=== PATIENT | female | born 1945 | race African-American/Black ===

== ENCOUNTER 2017-04-23 14:59 | Observation (INO) | payer MEDICARE ==
[~2017-04-23] VITALS: Ht 165.1 cm; Wt 86.4 kg
[~2017-04-23 14:59] MED LIST: ALENDRONATE70 MG PO; AMOX/K CLAV875 M1 PO; AMOXICILLIN/CL875 MG PO; AMOXICILLIN/PO500 MG PO; AMOXICILLIN500 MG PO; AUGMENTIN250 MG PO; AUGMENTIN875TAB PO; BACLOFEN10 MG PO; BAYER ASPIRIN325 MG PO; BENZONATATE200 MG PO; CALCIUM 600 +600 MG PO; CHERATUSSIN OR; FLAGYL500 MG PO; HYDROCHLOROT12.5 MG PO; HYDROCHLOROT25 MG PO; K-LOR20 MEQ OR; K-TABS10 MEQ OR; K-TABS10 MEQ PO; LISINOP/HCTZ1 TA1 OR; LISINOPRIL10 MG PO; METOPROL TAR100 MG OR; METOPROLOL SUC100 MG PO; NAPROSYN375 MG PO; NAPROSYN500 MG PO; NAPROXEN500 MG PO; OMEPRAZOLE40 MG PO; PRILOSEC40 MG PO; SIMVASTATIN40 MG PO; SOLU-MEDROL125 MG IM; TESSALON PER100 MG PO; TIZANIDINE2 MG PO; TRAMADOL HCL50 MG PO; VOSOL2 % AU; [UNRECOGNIZED DRUG - OTHER] OR
--- NOTE | 2017-04-23 15:00 | NUR ---
PT ACTUALLY TO ER AROUND 1450 WITH EMS, NO BEDS AVAILABLE, WAITED IN HALLWAY. EXAMINED PT AND DID A STROKE SCALE AND DID NOT THINK PT HAD ANY DEFICIETS OR MET THE DIAGNOSIS OF STROKE COMPLAINT.
--- NOTE | 2017-04-23 15:25 | NUR ---
FAMILY AT BEDSIDE, PT STATES SHE WAS ON PHONE TALKING TO SISTER AND FELT LIKE HER HEAD WAS SPINNING AND SHE BECAME LIGHTHEADED AROUND 130. VITAL SIGNS STABLE. PT ALERT/ORIENTED X3.
--- NOTE | 2017-04-23 15:54 | NUR ---
PT REMAINS A 0 ON THE [facility] SCALE , FLUIDS INFUSING. LABS DRAWN.
[2017-04-23 16:02] LABS: HEMATOCRIT 34.5 % (37.0-47.0); HEMOGLOBIN 11.1 g/dl (12.0-16.0); IMMATURE GRANULOCYTES 0.3 % (0.0-1.0); MEAN CELL VOLUME 96.9 fL CALC (80.0-100.0); MEAN CORPUSCULAR HGB 31.2 pG CALC (26.0-32.0); MEAN CORPUSCULAR HGB CONC 32.2 g/L CALC (32.0-36.0); NEUT# 4.02 thou/uL (2.00-7.15); RED BLOOD COUNT 3.56 mill/uL (4.20-5.60); RED CELL DISTRI WIDTH 13.7 % (11.5-15.5)
--- NOTE | 2017-04-23 16:05 | NUR ---
DAUGHTERS AT BEDSIDE. PT TALKATIVE. FLUIDS INFUSING-TOLERATING WELL
[2017-04-23 16:22] LABS: ALKALINE PHOSPHATASE 73 u/l (38-126); ANION GAP 15 (6-22 (CALC)); BILIRUBIN, TOTAL 0.8 mg/dL (0.0-1.4); BUN 20 mg/dL (8-23); BUN/CREATININE RATIO 24 (12-20 (CALC)); CALCIUM 9.4 mg/dL (8.4-10.2); CARBON DIOXIDE 24 mmol/l (22-30); CHLORIDE 108 mmol/l (95-108); CREATININE 0.9 mg/dL (0.5-1.0); GFR > 60 ML/MIN (>=60 (CALC)); GFR FOR AFR.AMER. > 60 ML/MIN (>=60 (CALC)); GLUCOSE 90 mg/dL (82-115); POTASSIUM 4.1 mmol/l (3.5-5.1); SGOT/AST 19 u/l (9-36); SGPT/ALT 28 u/l (11-66); SODIUM 143 mmol/l (137-146); TOTAL PROTEIN 7.2 g/dL (6.3-8.2)
--- NOTE | 2017-04-23 16:30 | NUR ---
PT UP TO BEDSIDE COMMODE
[2017-04-23 16:34] LABS: MYOGLOBIN 75 ng/mL (0 - 62)
--- NOTE | 2017-04-23 17:48 | NUR ---
PT RESTING QUIETLY, FAMILY AT BEDSIDE. NO PAIN AT THIS TIME
--- NOTE | 2017-04-23 18:12 | NUR ---
DR. RIOS SPEAKING WITH PT AND FAMILY AGAIN.
--- NOTE | 2017-04-23 18:17 | NUR ---
SBAR PRINTED TO FLOOR
--- NOTE | 2017-04-23 18:34 | NUR ---
FOOD TRAY GIVEN PER ORDER
--- NOTE | 2017-04-23 18:37 | NUR ---
TRIED TO CALL REPORT BUT NO ANSWER
--- NOTE | 2017-04-23 19:00 | NUR ---
RECEIVED REPORT FROM ZION EDWARDS.
--- NOTE | 2017-04-23 19:15 | NUR ---
PT. TAKEN TO ICU VIA STRETCHER, FAMILY AT SIDE. NO C/P.
[2017-04-23 19:18] VITALS: BP 175/85
--- NOTE | 2017-04-23 19:18 | NUR ---
female pt received to ICU 2 via stretcher accompanied by Yasmine Aguirre RN in stable condition; ambulatory to scale, bathroom then bed with steady gait; admission assessment completed at this time; c/c -pt starting coughing then lost her speech and became weak when trying to walk; pt alert nd oriented; admits to left shoulder pain rating 7/10; admits to taking a muscle relaxer but unsure of name; no n/v noted; resp even and unlabored; lungs clear throughout; skin color wnl; ra; hr reg; sr on monitor; strong pulses; trace edema noted to ankles; abd soft with bs present; no bm noted per radio script writer; pt voiding clear yellow urine without complication; ua sent to lab; #20 ems site in lh flushed and patent; no redness or edema noted at site; no neuro deficits noted; pt maew well; denies weakness at this time; no slurred speech noted; plan of care/ pm meds explained; pt hypertensive; admits to taking bp meds this am; pt encouraged to use call light; will continue to monitor closely
[2017-04-23 20:00] VITALS: BP 180/105
--- NOTE | 2017-04-23 20:00 | NUR ---
Dr Swan notified per keno writer of pt complaints of left shoulder pain and request for sleeping med; also informed pt bp 175/85; orders received and on chart
[2017-04-23 20:17] LABS: URINE BILIRUBIN - DIPSTICK NEGATIVE (NEGATIVE); URINE BLOOD DIPSTICK NEGATIVE (NEGATIVE); URINE CLARITY CLEAR; URINE COLOR YELLOW; URINE GLUCOSE - DIPSTICK NEGATIVE (NEGATIVE); URINE KETONE NEGATIVE (NEGATIVE); URINE LEUK ESTERASE NEGATIVE (NEGATIVE); URINE NITRITE - DIPSTICK NEGATIVE (Negative); URINE PROTEIN - DIPSTICK NEGATIVE (NEG-TRACE); URINE UROBILINOGEN - DIPSTICK 0.2 E.U./dL (0.2)
[2017-04-23 20:30] VITALS: BP 170/91
--- NOTE | 2017-04-23 20:30 | NUR ---
daughter present at bedside; home meds now noted in room; pt informed meds are to be sent home with family; will continue to monitor
[2017-04-23 21:59] VITALS: BP 156/91
--- NOTE | 2017-04-23 21:59 | NUR ---
resting with eyes closed; easily aroused; offers no complaints; admits to pain relief; bp reassessed at 156/91; sr on monitor; iv intact; deny needs; call light within reach; will continue to monitor
[2017-04-24] VITALS: BP 165/95
--- NOTE | 2017-04-24 | NUR ---
pt asleep; easily aroused; no distress noted; alert and oriented; denies pain; maew; no neuro deficit noted; assisted to bsc; voiding clear yellow urine pain/buring; iv intact; sr on monitor; call light within reach; will continue to monitor
--- NOTE | 2017-04-24 02:08 | NUR ---
resting with eyes closed; no distress noted; sr on monitor; call light within reach; will continue to monitor
[2017-04-24 04:08] VITALS: BP 183/101
--- NOTE | 2017-04-24 04:08 | NUR ---
pt awake; up to bsc per self; no distress noted; pt strongly encouraged to use call light; alert and oriented; no neuro changes noted; sr on monitor; bp 183/101; medicated with apresoline iv as per orders; call light within reach; will continue to monitor
[2017-04-24 05:03] LABS: CHOLESTEROL HDL RATIO 4.2 (<4.4 (CALC))
[2017-04-24 05:40] VITALS: BP 140/84
--- NOTE | 2017-04-24 05:40 | NUR ---
pt awake in bed; no distress noted; pt offers no complaints; iv intact; sr on monitor; no neuro deficits noted; bp reassessed at 140/84; bed in lowest position; call light within reach
--- NOTE | 2017-04-24 05:45 | NUR ---
daughter Tanya called this casualty underwriter; passcode verified; updated on pt condition; portable phone provided for pt to speak with daughter
[2017-04-24 07:15] VITALS: BP 195/103
--- NOTE | 2017-04-24 07:15 | NUR ---
PT LAYING IN BED WATCHING TV, A & O X3, PERRL, PT DENIES ANY PAIN, PT SHOWS NO NEURO DEFICITS, HR 65, RESP. 18, BP 195/103, O2 97% ON RA, LUNG SOUNDS CLEAR IN ALL ELIAS, 20G LH IV SALINE LOCKED, BILAT ANKLE TRACE EDEMA, AM ASSESSMENT COMPLETE, SEE INTERVENTIONS, SAFETY MEASURES REINFORCED, CALL [facility] WITHIN REACH
--- NOTE | 2017-04-24 08:35 | NUR ---
VISITOR AT BEDSIDE
[2017-04-24] MEDS ORDERED: TIZANIDINE HCL4 MG PO (08:39)
--- NOTE | 2017-04-24 08:40 | NUR ---
DR ACEVES AT BEDSIDE DISCUSSING PLAN OF CARE
[2017-04-24] MEDS ORDERED: ZOLOFT50 MG PO ×2 (08:41→15:25)
[2017-04-24] MEDS ORDERED: LISINOPRIL10 MG PO (08:42)
--- NOTE | 2017-04-24 10:15 | NUR ---
PT TO US VIA WC
--- NOTE | 2017-04-24 11:00 | NUR ---
PT RETURNED TO UNIT FROM US VIA WC
--- NOTE | 2017-04-24 11:45 | NUR ---
SETUP ASSISTANCE PROVIDED WITH LUNCH TRAY
[2017-04-24 12:00] VITALS: BP 152/92
--- NOTE | 2017-04-24 12:30 | NUR ---
PT SITTING IN RECLINER WATCHING TV, PT VERBALIZES NO COMPLAINT, PT TOLERATED LUNCH WELL, VISITORS AT BEDSIDE, PT REMINDED TO CALL FOR ASSISTANCE, CALL [facility] WITHIN REACH
[2017-04-24] MEDS ORDERED: BAYER ASPIRIN325 MG PO (15:25)
[2017-04-24] MEDS ORDERED: HYDROCHLOROT25 MG PO (15:25)
[2017-04-24] MEDS ORDERED: LISINOPRIL20 MG PO (15:25)
[2017-04-24] MEDS ORDERED: SIMVASTATIN40 MG PO (15:25)
[2017-04-24] MEDS ORDERED: METOPROLOL SUC100 MG PO (15:25)
--- NOTE | 2017-04-24 16:27 | NUR ---
Discharge instructions given. Patient verbalizes understanding of same. Discharged in stable condition via Ambulatory to Home with family. All belongings sent with pt.
== END 2017-04-24 16:25 | disposition home or self-care (01) ==
LOC: ED 14:59 → ED-I 18:00 → ED 18:21 → ICU 18:22
PROVIDERS: Emergency Medicine; Internal Medicine; ADMIT Internal Medicine; ATTEND Internal Medicine
DX: G45.9 Transient cerebral ischemic attack, unspecified (principal); I10 Essential (primary) hypertension; I95.9 Hypotension, unspecified; E78.5 Hyperlipidemia, unspecified; I69.992 Facial weakness following unspecified cerebrovascular disease; Z91.14 Patient's other noncompliance with medication regimen

== ENCOUNTER 2017-04-25 14:16 | Emergency (ER) | payer MEDICARE ==
[~2017-04-25] VITALS: Ht 165.1 cm; Wt 90.0 kg
[~2017-04-25 14:16] MED LIST changes: +LISINOPRIL20 MG PO; +TIZANIDINE HCL4 MG PO; +ZOLOFT50 MG PO
[2017-04-25 15:43] LABS: HEMATOCRIT 35.3 % (37.0-47.0); HEMOGLOBIN 11.5 g/dl (12.0-16.0); IMMATURE GRANULOCYTES 0.3 % (0.0-1.0); MEAN CELL VOLUME 95.4 fL CALC (80.0-100.0); MEAN CORPUSCULAR HGB 31.1 pG CALC (26.0-32.0); MEAN CORPUSCULAR HGB CONC 32.6 g/L CALC (32.0-36.0); NEUT# 4.38 thou/uL (2.00-7.15); RED BLOOD COUNT 3.7 mill/uL (4.20-5.60); RED CELL DISTRI WIDTH 13.6 % (11.5-15.5)
[2017-04-25 15:45] LABS: ALBUMIN 3.8 g/dL (3.2-5.0); ALKALINE PHOSPHATASE 78 u/l (38-126); ANION GAP 14 (6-22 (CALC)); BILIRUBIN, TOTAL 0.6 mg/dL (0.0-1.4); BUN 31 mg/dL (8-23); BUN/CREATININE RATIO 22 (12-20 (CALC)); CALCIUM 9.3 mg/dL (8.4-10.2); CARBON DIOXIDE 25 mmol/l (22-30); CHLORIDE 104 mmol/l (95-108); CREATININE 1.4 mg/dL (0.5-1.0); GFR 37 ML/MIN (>=60 (CALC)); GFR FOR AFR.AMER. 45 ML/MIN (>=60 (CALC)); GLUCOSE 96 mg/dL (82-115); POTASSIUM 3.6 mmol/l (3.5-5.1); SGOT/AST 49 u/l (9-36); SGPT/ALT 24 u/l (11-66); SODIUM 140 mmol/l (137-146); TOTAL PROTEIN 7.3 g/dL (6.3-8.2)
[2017-04-25 15:56] LABS: MYOGLOBIN 99 ng/mL (0 - 62)
[2017-04-25 16:33] LABS: URINE BILIRUBIN - DIPSTICK NEGATIVE (NEGATIVE); URINE BLOOD DIPSTICK NEGATIVE (NEGATIVE); URINE CLARITY SL CLOUDY; URINE COLOR YELLOW; URINE GLUCOSE - DIPSTICK NEGATIVE (NEGATIVE); URINE KETONE TRACE mg/dL (NEGATIVE); URINE LEUK ESTERASE NEGATIVE (NEGATIVE); URINE NITRITE - DIPSTICK NEGATIVE (Negative); URINE PH 5.5 (4.5-8.0); URINE PROTEIN - DIPSTICK NEGATIVE (NEG-TRACE); URINE UROBILINOGEN - DIPSTICK 0.2 E.U./dL (0.2)
[2017-04-25 16:55] VITALS: BP 128/74
== END 2017-04-25 16:55 | disposition home or self-care (01) ==
LOC: ED 14:16
PROVIDERS: Emergency Medicine
DX: I95.9 Hypotension, unspecified (principal); R53.1 Weakness; R42 Dizziness and giddiness; Z86.73 Personal history of transient ischemic attack (TIA), and cerebral infarction without residual deficits

== ENCOUNTER 2017-12-10 16:43 | Emergency (ER) | payer MEDICARE ==
[~2017-12-10] VITALS: Ht 165.1 cm; Wt 85.0 kg
[2017-12-10] MEDS ORDERED: METOPROLOL SUCC50 MG PO (17:06)
[2017-12-10 18:07] LABS: URINE BILIRUBIN - DIPSTICK NEGATIVE (NEGATIVE); URINE BLOOD DIPSTICK TRACE-INTACT (NEGATIVE); URINE COLOR YELLOW; URINE GLUCOSE - DIPSTICK NEGATIVE (NEGATIVE); URINE KETONE NEGATIVE (NEGATIVE); URINE PROTEIN - DIPSTICK NEGATIVE (NEG-TRACE); URINE SPECIFIC GRAVITY 1.025; URINE UROBILINOGEN - DIPSTICK 0.2 E.U./dL (0.2)
[2017-12-10 18:07] LABS: HEMATOCRIT 34.4 % (37.0-47.0); HEMOGLOBIN 11.1 g/dl (12.0-16.0); IMMATURE GRANULOCYTES 0.3 % (0.0-1.0); MEAN CORPUSCULAR HGB 30.3 pG CALC (26.0-32.0); MEAN CORPUSCULAR HGB CONC 32.3 g/L CALC (32.0-36.0); NEUT# 4.13 thou/uL (2.00-7.15); RED BLOOD COUNT 3.66 mill/uL (4.20-5.60); RED CELL DISTRI WIDTH 13.8 % (11.5-15.5)
[2017-12-10 18:08] LABS: URINE CLARITY CLEAR; URINE LEUK ESTERASE MODERATE (NEGATIVE); URINE NITRITE - DIPSTICK POSITIVE (Negative)
[2017-12-10 18:09] LABS: URINE BACTERIA RARE hpf; URINE RBC 0-2 RBC/hpf (0-5); URINE SQUAMOUS EPITHELIAL CELL FEW EPI/hpf (0-FEW)
[2017-12-10 18:14] LABS: ALBUMIN 3.9 g/dL (3.2-5.0); ALKALINE PHOSPHATASE 76 u/l (38-126); ANION GAP 11 (6-22 (CALC)); BILIRUBIN, TOTAL 0.6 mg/dL (0.0-1.4); BUN 27 mg/dL (8-23); BUN/CREATININE RATIO 34 (12-20 (CALC)); CARBON DIOXIDE 30 mmol/l (22-30); CHLORIDE 103 mmol/l (95-108); CREATININE 0.8 mg/dL (0.5-1.0); GFR > 60 ML/MIN (>=60 (CALC)); GFR FOR AFR.AMER. > 60 ML/MIN (>=60 (CALC)); POTASSIUM 2.9 mmol/l (3.5-5.1); SGOT/AST 25 u/l (9-36); SGPT/ALT 32 u/l (11-66); SODIUM 141 mmol/l (137-146); TOTAL PROTEIN 7.7 g/dL (6.3-8.2)
[2017-12-10 18:26] LABS: MAGNESIUM 1.8 mg/dL (1.6-2.3)
[2017-12-10] MEDS ORDERED: KEFLEX500 M1 PO (20:57)
[2017-12-10] MEDS ORDERED: POTASSIUM CHLO20 ME1 PO (20:57)
[2017-12-10 23:08] LABS: ANION GAP 9 (6-22 (CALC)); BUN 22 mg/dL (8-23); BUN/CREATININE RATIO 29 (12-20 (CALC)); CARBON DIOXIDE 31 mmol/l (22-30); CHLORIDE 106 mmol/l (95-108); CREATININE 0.8 mg/dL (0.5-1.0); GFR > 60 ML/MIN (>=60 (CALC)); GFR FOR AFR.AMER. > 60 ML/MIN (>=60 (CALC)); POTASSIUM 3.3 mmol/l (3.5-5.1); SODIUM 143 mmol/l (137-146)
[2017-12-10 23:45] VITALS: BP 156/82
== END 2017-12-10 23:48 | disposition home or self-care (01) ==
LOC: ED 16:43
PROVIDERS: Emergency Medicine
DX: N39.0 Urinary tract infection, site not specified (principal); E87.6 Hypokalemia; I10 Essential (primary) hypertension; E66.9 Obesity, unspecified; G89.29 Other chronic pain; M54.9 Dorsalgia, unspecified; E78.00 Pure hypercholesterolemia, unspecified; B96.20 Unspecified Escherichia coli [E. coli] as the cause of diseases classified elsewhere; Z86.73 Personal history of transient ischemic attack (TIA), and cerebral infarction without residual deficits

== ENCOUNTER 2017-12-14 01:54 | Emergency (ER) | payer MEDICARE ==
[~2017-12-14] VITALS: Ht 165.1 cm; Wt 81.8 kg
[~2017-12-14 01:54] MED LIST changes: +KEFLEX500 M1 PO; +METOPROLOL SUCC50 MG PO; +POTASSIUM CHLO20 ME1 PO
[2017-12-14 02:30] LABS: HEMATOCRIT 32.9 % (37.0-47.0); HEMOGLOBIN 10.7 g/dl (12.0-16.0); IMMATURE GRANULOCYTES 0.3 % (0.0-1.0); MEAN CELL VOLUME 94.8 fL CALC (80.0-100.0); MEAN CORPUSCULAR HGB 30.8 pG CALC (26.0-32.0); MEAN CORPUSCULAR HGB CONC 32.5 g/L CALC (32.0-36.0); NEUT# 3.32 thou/uL (2.00-7.15); RED BLOOD COUNT 3.47 mill/uL (4.20-5.60)
[2017-12-14 02:43] LABS: ALBUMIN 3.6 g/dL (3.2-5.0); ALKALINE PHOSPHATASE 70 u/l (38-126); ANION GAP 11 (6-22 (CALC)); BILIRUBIN, TOTAL 0.6 mg/dL (0.0-1.4); BUN 24 mg/dL (8-23); BUN/CREATININE RATIO 31 (12-20 (CALC)); CARBON DIOXIDE 26 mmol/l (22-30); CHLORIDE 104 mmol/l (95-108); CREATININE 0.8 mg/dL (0.5-1.0); GFR > 60 ML/MIN (>=60 (CALC)); GFR FOR AFR.AMER. > 60 ML/MIN (>=60 (CALC)); MAGNESIUM 1.7 mg/dL (1.6-2.3); POTASSIUM 3.5 mmol/l (3.5-5.1); SGOT/AST 34 u/l (9-36); SGPT/ALT 30 u/l (11-66); SODIUM 138 mmol/l (137-146); TOTAL PROTEIN 7.3 g/dL (6.3-8.2)
[2017-12-14 02:57] LABS: URINE BILIRUBIN - DIPSTICK NEGATIVE (NEGATIVE); URINE BLOOD DIPSTICK SMALL (NEGATIVE); URINE COLOR YELLOW; URINE GLUCOSE - DIPSTICK NEGATIVE (NEGATIVE); URINE KETONE NEGATIVE (NEGATIVE); URINE NITRITE - DIPSTICK NEGATIVE (Negative); URINE PH 5.5 (4.5-8.0); URINE PROTEIN - DIPSTICK NEGATIVE (NEG-TRACE); URINE SPECIFIC GRAVITY 1.025; URINE UROBILINOGEN - DIPSTICK 0.2 E.U./dL (0.2)
[2017-12-14 03:01] LABS: URINE CLARITY TURBID; URINE LEUK ESTERASE LARGE (NEGATIVE)
[2017-12-14 03:02] LABS: URINE BACTERIA FEW hpf; URINE MUCUS FEW hpf (NONE-FEW); URINE SQUAMOUS EPITHELIAL CELL MODERATE EPI/hpf (0-FEW); URINE WBC 20-50 WBC/hpf (0-5)
[2017-12-14 03:14] LABS: TSH, 3RD GENERATION 1.66 uIU/mL (0.47 - 4.68)
[2017-12-14 03:45] VITALS: BP 131/78
== END 2017-12-14 03:45 | disposition home or self-care (01) ==
LOC: ED 01:54
PROVIDERS: Family Medicine
DX: R42 Dizziness and giddiness (principal); E86.0 Dehydration; I10 Essential (primary) hypertension; Z86.73 Personal history of transient ischemic attack (TIA), and cerebral infarction without residual deficits

== ENCOUNTER 2018-05-19 16:28 | Emergency (ER) | payer MEDICARE ==
[~2018-05-19] VITALS: Ht 165.1 cm; Wt 82.0 kg
[2018-05-19] MEDS ORDERED: XANAX0.5 MG PO (18:22)
[2018-05-19 18:43] VITALS: BP 128/85
== END 2018-05-19 18:43 | disposition home or self-care (01) ==
LOC: ED 16:28
DX: F41.8 Other specified anxiety disorders (principal); I10 Essential (primary) hypertension; E78.00 Pure hypercholesterolemia, unspecified; Z86.73 Personal history of transient ischemic attack (TIA), and cerebral infarction without residual deficits
CPT/HCPCS: J2060

== ENCOUNTER 2018-08-20 00:14 | Emergency (ER) | payer MEDICARE ==
[~2018-08-20] VITALS: Ht 165.1 cm; Wt 85.9 kg
[~2018-08-20 00:14] MED LIST changes: +XANAX0.5 MG PO
[2018-08-20 01:46] LABS: HEMATOCRIT 33.7 % (37.0-47.0); HEMOGLOBIN 10.7 g/dl (12.0-16.0); IMMATURE GRANULOCYTES 0.1 % (0.0-5.0); MEAN CELL VOLUME 95.7 fL CALC (80.0-100.0); MEAN CORPUSCULAR HGB 30.4 pG CALC (26.0-32.0); MEAN CORPUSCULAR HGB CONC 31.8 g/L CALC (32.0-36.0); NEUT# 3.34 thou/uL (2.00-7.15); RED BLOOD COUNT 3.52 mill/uL (4.20-5.60); RED CELL DISTRI WIDTH 13.7 % (11.5-15.5)
[2018-08-20 01:52] LABS: ALBUMIN 3.9 g/dL (3.2-5.0); ALKALINE PHOSPHATASE 74 u/l (38-126); ANION GAP 13 (6-22 (CALC)); BILIRUBIN, TOTAL 0.7 mg/dL (0.0-1.4); BUN 21 mg/dL (8-23); BUN/CREATININE RATIO 30 (12-20 (CALC)); CARBON DIOXIDE 28 mmol/l (22-30); CHLORIDE 102 mmol/l (95-108); CREATININE 0.7 mg/dL (0.5-1.0); GFR > 60 ML/MIN (>=60 (CALC)); GFR FOR AFR.AMER. > 60 ML/MIN (>=60 (CALC)); POTASSIUM 3.1 mmol/l (3.5-5.1); SGOT/AST 20 u/l (9-36); SODIUM 140 mmol/l (137-146); TOTAL PROTEIN 7.3 g/dL (6.3-8.2)
[2018-08-20 01:53] LABS: PROTHROMBIN TIME 10.3 SECONDS (9.0-12.5)
[2018-08-20 02:05] LABS: MYOGLOBIN 58 ng/mL (0 - 62)
[2018-08-20 02:18] LABS: URINE BILIRUBIN - DIPSTICK NEGATIVE (NEGATIVE); URINE BLOOD DIPSTICK NEGATIVE (NEGATIVE); URINE COLOR YELLOW; URINE GLUCOSE - DIPSTICK NEGATIVE (NEGATIVE); URINE KETONE NEGATIVE (NEGATIVE); URINE LEUK ESTERASE NEGATIVE (NEGATIVE); URINE NITRITE - DIPSTICK NEGATIVE (Negative); URINE PH 5.5 (4.5-8.0); URINE PROTEIN - DIPSTICK NEGATIVE (NEG-TRACE); URINE SPECIFIC GRAVITY 1.025; URINE UROBILINOGEN - DIPSTICK 0.2 E.U./dL (0.2)
[2018-08-20] MEDS ORDERED: LISINOPRIL40 MG PO (02:24)
[2018-08-20 03:00] VITALS: BP 159/68
== END 2018-08-20 03:23 | disposition short-term general hospital (02) ==
LOC: ED 00:14
PROVIDERS: Emergency Medicine
DX: G45.9 Transient cerebral ischemic attack, unspecified (principal); I10 Essential (primary) hypertension; Z86.73 Personal history of transient ischemic attack (TIA), and cerebral infarction without residual deficits

== ENCOUNTER 2019-04-21 08:01 | Emergency (ER) | payer MEDICARE ==
[~2019-04-21] VITALS: Ht 165.1 cm; Wt 90.9 kg
[~2019-04-21 08:01] MED LIST changes: +LISINOPRIL40 MG PO
[2019-04-21 08:42] LABS: HEMATOCRIT 36.8 % (37.0-47.0); HEMOGLOBIN 11.6 g/dl (12.0-16.0); IMMATURE GRANULOCYTES 0.3 % (0.0-5.0); MEAN CELL VOLUME 95.3 fL CALC (80.0-100.0); MEAN CORPUSCULAR HGB 30.1 pG CALC (26.0-32.0); MEAN CORPUSCULAR HGB CONC 31.5 g/L CALC (32.0-36.0); NEUT# 2.7 thou/uL (2.00-7.15); RED BLOOD COUNT 3.86 mill/uL (4.20-5.60); RED CELL DISTRI WIDTH 13.6 % (11.5-15.5)
[2019-04-21 08:57] LABS: ALBUMIN 4.1 g/dL (3.2-5.0); ALKALINE PHOSPHATASE 94 u/l (38-126); ANION GAP 10 (6-22 (CALC)); BILIRUBIN, TOTAL 0.8 mg/dL (0.0-1.4); BUN 15 mg/dL (8-23); BUN/CREATININE RATIO 19 (12-20 (CALC)); CARBON DIOXIDE 30 mmol/l (22-30); CHLORIDE 104 mmol/l (95-108); CREATININE 0.8 mg/dL (0.5-1.0); GFR > 60 ML/MIN (>=60 (CALC)); GFR FOR AFR.AMER. > 60 ML/MIN (>=60 (CALC)); SGOT/AST 20 u/l (9-36); SODIUM 140 mmol/l (137-146); TOTAL PROTEIN 7.8 g/dL (6.3-8.2)
[2019-04-21 08:58] LABS: POTASSIUM 3.9 mmol/l (3.5-5.1)
[2019-04-21 09:09] LABS: MYOGLOBIN 51 ng/mL (0 - 62)
[2019-04-21] MEDS ORDERED: ASPIRIN81 MG PO (09:12)
[2019-04-21] MEDS ORDERED: KLOR-CON M2020 MEQ PO (09:13)
[2019-04-21] MEDS ORDERED: METOPROL TAR25 MG PO (09:13)
[2019-04-21] MEDS ORDERED: MIRTAZAPINE15 MG PO (09:13)
[2019-04-21] MEDS ORDERED: VITAMIN D22000 UNIT PO (09:14)
[2019-04-21] MEDS ORDERED: ZYRTEC10 MG PO (10:15)
[2019-04-21] MEDS ORDERED: ANTIVERT PO (10:15)
[2019-04-21 10:17] VITALS: BP 170/91
== END 2019-04-21 10:23 | disposition home or self-care (01) ==
LOC: ED 08:01
PROVIDERS: Family Medicine
DX: R42 Dizziness and giddiness (principal); H10.13 Acute atopic conjunctivitis, bilateral; I10 Essential (primary) hypertension; Z86.73 Personal history of transient ischemic attack (TIA), and cerebral infarction without residual deficits

== ENCOUNTER 2019-05-16 17:31 | Emergency (ER) | payer MEDICARE ==
[~2019-05-16] VITALS: Ht 165.1 cm; Wt 90.0 kg
[~2019-05-16 17:31] MED LIST changes: +ANTIVERT PO; +ASPIRIN81 MG PO; +KLOR-CON M2020 MEQ PO; +METOPROL TAR25 MG PO; +MIRTAZAPINE15 MG PO; +VITAMIN D22000 UNIT PO; +ZYRTEC10 MG PO
[2019-05-16] MEDS ORDERED: NAPROXEN500 MG PO (18:38)
[2019-05-16 18:45] VITALS: BP 121/74
[2019-05-16] MEDS ORDERED: SIMVASTATIN80 MG PO (18:57)
[2019-05-16] MEDS ORDERED: METOPROLOL100 M1 PO (18:58)
[2019-05-16] MEDS ORDERED: CETIRIZINE10 MG PO (18:59)
[2019-05-16] MEDS ORDERED: ALENDRONATE SOD70 MG PO (18:59)
[2019-05-16] MEDS ORDERED: VITAMIN D50000 UNIT PO (19:01)
== END 2019-05-16 18:45 | disposition home or self-care (01) ==
LOC: ED 17:31
DX: S60.221A Contusion of right hand, initial encounter (principal); I10 Essential (primary) hypertension; W01.0XXA Fall on same level from slipping, tripping and stumbling without subsequent striking against object, initial encounter; Y92.007 Garden or yard of unspecified non-institutional (private) residence as the place of occurrence of the external cause

== ENCOUNTER 2021-04-07 13:46 | Emergency (ER) | payer MEDICARE ==
[~2021-04-07] VITALS: Ht 165.1 cm; Wt 84.1 kg
[~2021-04-07 13:46] MED LIST changes: +ALENDRONATE SOD70 MG PO; +CETIRIZINE10 MG PO; +METOPROLOL100 M1 PO; +SIMVASTATIN80 MG PO; +VITAMIN D50000 UNIT PO
[2021-04-07 14:46] LABS: HEMATOCRIT 36.7 % (37.0-47.0); HEMOGLOBIN 11.8 g/dl (12.0-16.0); IMMATURE GRANULOCYTES 0.2 % (0.0-5.0); MEAN CELL VOLUME 96.1 fL CALC (80.0-100.0); MEAN CORPUSCULAR HGB 30.9 pG CALC (26.0-32.0); MEAN CORPUSCULAR HGB CONC 32.2 g/dL CAL (32.0-36.0); NEUT# 6.03 thou/uL (2.00-7.15); RED BLOOD COUNT 3.82 mill/uL (4.20-5.60); RED CELL DISTRI WIDTH 12.5 % (11.5-15.5)
[2021-04-07 15:04] LABS: ALBUMIN 4.4 g/dL (3.2-5.0); BILIRUBIN, TOTAL 0.8 mg/dL (0.0-1.4); CREATININE 1.1 mg/dL (0.5-1.0); POTASSIUM 3.5 mmol/l (3.5-5.1); TOTAL PROTEIN 8.4 g/dL (6.3-8.2)
[2021-04-07 16:58] VITALS: BP 169/84
== END 2021-04-07 16:58 | disposition home or self-care (01) ==
LOC: ED 13:46
DX: F43.20 Adjustment disorder, unspecified (principal); I95.2 Hypotension due to drugs; I10 Essential (primary) hypertension; E78.00 Pure hypercholesterolemia, unspecified; T50.905A Adverse effect of unspecified drugs, medicaments and biological substances, initial encounter; Z86.73 Personal history of transient ischemic attack (TIA), and cerebral infarction without residual deficits; Z63.4 Disappearance and death of family member

== ENCOUNTER 2021-04-17 03:09 | Emergency (ER) | payer MEDICARE ==
[~2021-04-17] VITALS: Ht 165.1 cm; Wt 84.0 kg
[2021-04-17 03:55] LABS: URINE BILIRUBIN - DIPSTICK NEGATIVE (NEGATIVE); URINE BLOOD DIPSTICK NEGATIVE (NEGATIVE); URINE COLOR YELLOW; URINE GLUCOSE - DIPSTICK NEGATIVE (NEGATIVE); URINE KETONE NEGATIVE (NEGATIVE); URINE LEUK ESTERASE NEGATIVE (NEGATIVE); URINE PROTEIN - DIPSTICK NEGATIVE (NEG-TRACE); URINE SPECIFIC GRAVITY 1.015; URINE UROBILINOGEN - DIPSTICK 0.2 E.U./dL (0.2)
[2021-04-17 03:56] LABS: URINE NITRITE - DIPSTICK NEGATIVE (Negative)
[2021-04-17 03:57] LABS: HEMATOCRIT 34.8 % (37.0-47.0); HEMOGLOBIN 11.3 g/dl (12.0-16.0); IMMATURE GRANULOCYTES 0.2 % (0.0-5.0); MEAN CELL VOLUME 94.6 fL CALC (80.0-100.0); MEAN CORPUSCULAR HGB 30.7 pG CALC (26.0-32.0); MEAN CORPUSCULAR HGB CONC 32.5 g/dL CAL (32.0-36.0); NEUT# 3.35 thou/uL (2.00-7.15); RED BLOOD COUNT 3.68 mill/uL (4.20-5.60); RED CELL DISTRI WIDTH 12.4 % (11.5-15.5)
[2021-04-17 04:00] LABS: ALBUMIN 4.1 g/dL (3.2-5.0); ALKALINE PHOSPHATASE 83 u/l (38-126); ANION GAP 9 (6-22 (CALC)); BUN 18 mg/dL (8-23); BUN/CREATININE RATIO 23 (12-20 (CALC)); CARBON DIOXIDE 31 mmol/l (22-30); CHLORIDE 103 mmol/l (95-108); CREATININE 0.8 mg/dL (0.5-1.0); GFR > 60 ML/MIN (>=60 (CALC)); GFR FOR AFR.AMER. > 60 ML/MIN (>=60 (CALC)); POTASSIUM 3.5 mmol/l (3.5-5.1); SODIUM 139 mmol/l (137-146); TOTAL PROTEIN 8.1 g/dL (6.3-8.2)
[2021-04-17 04:01] LABS: INTERNATIONAL NORMALIZED RATIO 0.9 RATIO (0.7-1.3); PROTHROMBIN TIME 9.8 SECONDS (9.0-12.5)
[2021-04-17 04:02] LABS: SGOT/AST 46 u/l (9-36)
[2021-04-17 04:12] LABS: MYOGLOBIN 56 ng/mL (0 - 62)
[2021-04-17 04:48] VITALS: BP 150/88
[2021-04-17] MEDS ORDERED: PLAVIX75 MG PO (04:53)
== END 2021-04-17 05:08 | disposition home or self-care (01) ==
LOC: ED 03:09
PROVIDERS: Family Medicine
DX: G45.9 Transient cerebral ischemic attack, unspecified (principal); I10 Essential (primary) hypertension; E78.00 Pure hypercholesterolemia, unspecified; Z86.73 Personal history of transient ischemic attack (TIA), and cerebral infarction without residual deficits; Z79.82 Long term (current) use of aspirin

== ENCOUNTER 2023-07-11 11:25 | Observation (INO) | payer MEDICARE ==
[2023-07-11] VITALS (15 sets, daily range): BP systolic 107–183; BP diastolic 70–120
[~2023-07-11] VITALS: Ht 165.1 cm; Wt 83.6 kg
[~2023-07-11 11:25] MED LIST changes: +PLAVIX75 MG PO
[2023-07-11 14:18] LABS: BASO% 0.8 % (0-3); EOS% 5.6 % (0-8); HEMATOCRIT 37.8 % (37.0-47.0); HEMOGLOBIN 12.3 g/dl (12.0-16.0); IMMATURE GRANULOCYTES 0.2 % (0.0-5.0); LYMPH% 28.6 % (15-41); MEAN CORPUSCULAR HGB 30.9 pG CALC (26.0-32.0); MEAN CORPUSCULAR HGB CONC 32.5 g/dL CAL (32.0-36.0); MONO% 6.2 % (2-13); NEUT# 3.48 thou/uL (2.00-7.15); NEUT% 58.6 % (42-76); RED BLOOD COUNT 3.98 mill/uL (4.20-5.60)
[2023-07-11 14:56] LABS: ALBUMIN 4.5 g/dL (3.2-5.0); ALKALINE PHOSPHATASE 70 u/l (38-126); ANION GAP 11 (6-22 (CALC)); BILIRUBIN, TOTAL 1.2 mg/dL (0.02-1.3); CARBON DIOXIDE 30 mmol/l (22-30); CHLORIDE 101 mmol/l (95-108); CREATININE 1.7 mg/dL (0.5-1.0); GFR FOR AFR.AMER. 35 ML/MIN (>=60 (CALC)); GFR OTHER RACES 29 ML/MIN (>=60 (CALC)); POTASSIUM 3.2 mmol/l (3.5-5.1); SODIUM 139 mmol/l (137-146); TOTAL PROTEIN 8.6 g/dL (6.3-8.2)
[2023-07-11 15:09] LABS: BUN 44 mg/dL (8-23); BUN/CREATININE RATIO 26 (12-20 (CALC)); MAGNESIUM 2.4 mg/dL (1.6-2.3); SGOT/AST 136 u/l (9-36)
[2023-07-11 15:57] LABS: URINE BLOOD DIPSTICK Trace-lysed (NEGATIVE); URINE GLUCOSE - DIPSTICK Negative (NEGATIVE); URINE KETONE Trace mg/dL (NEGATIVE); URINE NITRITE - DIPSTICK Negative (Negative); URINE PH 5.5 (4.5-8.0); URINE PROTEIN - DIPSTICK Trace mg/dL (NEG-TRACE); URINE SPECIFIC GRAVITY 1.025; URINE UROBILINOGEN - DIPSTICK 0.2 E.U./dL (0.2)
[2023-07-11 15:58] LABS: URINE COLOR Yellow; URINE LEUK ESTERASE Small (NEGATIVE)
[2023-07-11 16:12] LABS: URINE SQUAMOUS EPITHELIAL CELL FEW EPI/hpf (0-FEW)
[2023-07-11] MEDS ORDERED: NORVASC PO (17:43)
[2023-07-11] MEDS ORDERED: LEVOTHYROXIN150 MC1 PO (17:44)
[2023-07-11] MEDS ORDERED: ASPIRIN325 MG PO (17:45)
[2023-07-11] MEDS ORDERED: COZAAR50 MG PO (17:46)
[2023-07-12 05:43] LABS: C-REACTIVE PROTEIN 3.7 mg/dL (0-0.9); CHOLESTEROL HDL RATIO 3.4 (<4.4 (CALC))
[2023-07-12 06:40] VITALS: BP 134/78
[2023-07-12 06:42] LABS: CREATININE 1.1 mg/dL (0.5-1.0); POTASSIUM 2.9 mmol/l (3.5-5.1)
[2023-07-12 06:45] LABS: ALBUMIN 3.4 g/dL (3.2-5.0); BILIRUBIN, TOTAL 0.7 mg/dL (0.02-1.3); TOTAL PROTEIN 6.4 g/dL (6.3-8.2)
[2023-07-12 06:58] LABS: BASO% 0.8 % (0-3); EOS% 7.3 % (0-8); HEMATOCRIT 32.3 % (37.0-47.0); HEMOGLOBIN 10.5 g/dl (12.0-16.0); IMMATURE GRANULOCYTES 0.2 % (0.0-5.0); LYMPH% 37.1 % (15-41); MEAN CELL VOLUME 95.6 fL CALC (80.0-100.0); MEAN CORPUSCULAR HGB 31.1 pG CALC (26.0-32.0); MEAN CORPUSCULAR HGB CONC 32.5 g/dL CAL (32.0-36.0); MONO% 10.2 % (2-13); NEUT# 2.27 thou/uL (2.00-7.15); NEUT% 44.4 % (42-76); RED BLOOD COUNT 3.38 mill/uL (4.20-5.60); RED CELL DISTRI WIDTH 14.1 % (11.5-15.5)
[2023-07-12 11:12] VITALS: BP 136/83
[2023-07-12] MEDS ORDERED: OMNICEF300 MG PO (11:49)
[2023-07-12] MEDS ORDERED: LEVOTHYROXIN175 MC1 PO (13:35)
== END 2023-07-12 14:15 | disposition home or self-care (01) ==
LOC: ED 11:25 → ED-I 16:20 → ED 17:02 → MS2 17:03
PROVIDERS: Nurse Practitioner; ADMIT Student in an Organized Health Care Education/Training Program; ATTEND Student in an Organized Health Care Education/Training Program
DX: U07.1 COVID-19 (principal); N17.9 Acute kidney failure, unspecified; N30.00 Acute cystitis without hematuria; E86.0 Dehydration; I12.9 Hypertensive chronic kidney disease with stage 1 through stage 4 chronic kidney disease, or unspecified chronic kidney disease; N18.9 Chronic kidney disease, unspecified; E78.5 Hyperlipidemia, unspecified; E03.9 Hypothyroidism, unspecified; Z86.73 Personal history of transient ischemic attack (TIA), and cerebral infarction without residual deficits

== ENCOUNTER 2023-08-03 20:27 | Emergency (ER) | payer MEDICARE ==
[~2023-08-03] VITALS: Ht 165.1 cm; Wt 86.1 kg
[~2023-08-03 20:27] MED LIST changes: +ASPIRIN325 MG PO; +COZAAR50 MG PO; +LEVOTHYROXIN150 MC1 PO; +LEVOTHYROXIN175 MC1 PO; +NORVASC PO; +OMNICEF300 MG PO
[2023-08-03] MEDS ORDERED: ONDANSETRON 4 MG/TAB ODT PO ONE (22:10)
[2023-08-04 00:06] LABS: URINE BILIRUBIN - DIPSTICK Negative (NEGATIVE); URINE BLOOD DIPSTICK Trace-intact (NEGATIVE); URINE COLOR Yellow; URINE GLUCOSE - DIPSTICK Negative (NEGATIVE); URINE KETONE Negative (NEGATIVE); URINE LEUK ESTERASE Negative (NEGATIVE); URINE NITRITE - DIPSTICK Negative (Negative); URINE PROTEIN - DIPSTICK Negative (NEG-TRACE); URINE SPECIFIC GRAVITY 1.025; URINE UROBILINOGEN - DIPSTICK 0.2 E.U./dL (0.2)
[2023-08-04 00:26] VITALS: BP 164/96
== END 2023-08-04 00:44 | disposition home or self-care (01) ==
LOC: ED 20:27
PROVIDERS: Emergency Medicine
DX: M54.50 Low back pain, unspecified (principal); G89.29 Other chronic pain; I10 Essential (primary) hypertension; Z86.73 Personal history of transient ischemic attack (TIA), and cerebral infarction without residual deficits; Z86.16 Personal history of COVID-19

== ENCOUNTER 2024-05-13 06:30 | Day surgery (SDC) | payer MEDICARE ==
[~2024-05-13] VITALS: Ht 165.1 cm; Wt 75.7 kg
[~2024-05-13 06:30] MED LIST changes: +METHOCARBAMOL500 MG PO; +ROSUVASTATIN CA20 MG PO
[2024-05-13] MEDS ORDERED: SODIUM CHLORIDE 0.9% 10 ML SYR ONE (06:36)
[2024-05-13] MEDS ORDERED: LEVOTHYROXIN25 MC1 PO (07:04)
[2024-05-13] MEDS ORDERED: MIDAZOLAM HCL 2 MG/2 ML VIAL ONE (07:37)
[2024-05-13] MEDS ORDERED: TRIAMCINOLONE ACETONIDE 40 MG/ML ML ONE (07:58)
[2024-05-13] MEDS ORDERED: LIDOCAINE HCL 1% (10MG/ML) 100 MG/10 ML MDV ONE (07:58)
[2024-05-13] MEDS ORDERED: BUPIVACAINE HCL PF 0.5 % 50 MG/10 ML SDV ONE (07:59)
[2024-05-13] MEDS ORDERED: SODIUM CHLORIDE 20 ML/VIAL SDV ONE (08:19)
[2024-05-13 08:45] VITALS: BP 186/97
== END 2024-05-13 08:30 | disposition home or self-care (01) ==
LOC: ORM 06:30
PROVIDERS: ATTEND Student in an Organized Health Care Education/Training Program
DX: M54.9 Dorsalgia, unspecified (principal); M54.89 Other dorsalgia; M79.18 Myalgia, other site
CPT/HCPCS: J3301

== ENCOUNTER 2024-06-08 16:23 | Emergency (ER) | payer MEDICARE ==
[~2024-06-08] VITALS: Ht 165.1 cm; Wt 71.2 kg
[~2024-06-08 16:23] MED LIST changes: +LEVOTHYROXIN25 MC1 PO
[2024-06-08] MEDS ORDERED: IBUPROFEN 800 MG/TAB PO ONE (22:05)
[2024-06-08] MEDS ORDERED: oxyCODONE 5MG/ ACETAMINOPHEN 325MG TAB PO ONE (22:55)
[2024-06-09] MEDS ORDERED: PERCOCET 5/325M1 TAB PO (00:08)
[2024-06-09] MEDS ORDERED: ONDANSETRON4 MG PO (00:08)
[2024-06-09 00:43] VITALS: BP 150/88
== END 2024-06-09 00:43 | disposition home or self-care (01) ==
LOC: ED 16:23
DX: S42.141A Displaced fracture of glenoid cavity of scapula, right shoulder, initial encounter for closed fracture (principal); S00.11XA Contusion of right eyelid and periocular area, initial encounter; I10 Essential (primary) hypertension; E78.00 Pure hypercholesterolemia, unspecified; W01.0XXA Fall on same level from slipping, tripping and stumbling without subsequent striking against object, initial encounter; Z91.81 History of falling; Z86.73 Personal history of transient ischemic attack (TIA), and cerebral infarction without residual deficits

== ENCOUNTER 2024-07-11 09:38 | Emergency (ER) | payer MEDICARE ==
[~2024-07-11] VITALS: Ht 165.1 cm; Wt 82.0 kg
[2024-07-11] VITALS (8 sets, daily range): BP systolic 134–215; BP diastolic 76–112
[~2024-07-11 09:38] MED LIST changes: +ONDANSETRON4 MG PO; +PERCOCET 5/325M1 TAB PO
[2024-07-11 10:20] LABS: BASO% 0.6 % (0-3); EOS% 3.9 % (0-8); HEMATOCRIT 34.3 % (37.0-47.0); IMMATURE GRANULOCYTES 0.2 % (0.0-5.0); LYMPH% 26.4 % (15-41); MEAN CELL VOLUME 96.9 fL CALC (80.0-100.0); MEAN CORPUSCULAR HGB 31.1 pG CALC (26.0-32.0); MEAN CORPUSCULAR HGB CONC 32.1 g/dL CAL (32.0-36.0); MONO% 7.6 % (2-13); NEUT# 3.3 thou/uL (2.00-7.15); NEUT% 61.3 % (42-76); RED BLOOD COUNT 3.54 mill/uL (4.20-5.60); RED CELL DISTRI WIDTH 12.9 % (11.5-15.5)
[2024-07-11 10:34] LABS: BILIRUBIN, TOTAL 1.1 mg/dL (0.02-1.3); CREATININE 0.8 mg/dL (0.5-1.0); POTASSIUM 2.9 mmol/l (3.5-5.1); TOTAL PROTEIN 7.2 g/dL (6.3-8.2)
[2024-07-11] MEDS ORDERED: POTASSIUM CHLORIDE 20 MEQ/TAB PO ONE (10:40)
[2024-07-11 13:17] LABS: URINE BILIRUBIN - DIPSTICK Negative (NEGATIVE); URINE BLOOD DIPSTICK Negative (NEGATIVE); URINE GLUCOSE - DIPSTICK Negative (NEGATIVE); URINE KETONE Negative (NEGATIVE); URINE LEUK ESTERASE Negative (NEGATIVE); URINE NITRITE - DIPSTICK Negative (Negative); URINE PH 8.5 (4.5-8.0); URINE PROTEIN - DIPSTICK Negative (NEG-TRACE); URINE UROBILINOGEN - DIPSTICK 0.2 E.U./dL (0.2)
[2024-07-11 13:22] LABS: URINE COLOR Yellow
[2024-07-11] MEDS ORDERED: HYDROCO/APAP1 TA9 PO (13:32)
== END 2024-07-11 13:51 | disposition home or self-care (01) ==
LOC: ED 09:38
PROVIDERS: Family Medicine
DX: M25.551 Pain in right hip (principal); N30.90 Cystitis, unspecified without hematuria; I10 Essential (primary) hypertension; E78.00 Pure hypercholesterolemia, unspecified; Z86.73 Personal history of transient ischemic attack (TIA), and cerebral infarction without residual deficits
CPT/HCPCS: Q9967

== ENCOUNTER 2024-07-24 12:22 | Emergency (ER) | payer MEDICARE ==
[~2024-07-24] VITALS: Ht 165.1 cm; Wt 64.9 kg
[2024-07-24] VITALS (12 sets, daily range): BP systolic 109–175; BP diastolic 58–96
[~2024-07-24 12:22] MED LIST changes: +HYDROCO/APAP1 TA9 PO
[2024-07-24 13:20] LABS: BASO% 0.4 % (0-3); EOS% 3.3 % (0-8); HEMOGLOBIN 10.9 g/dl (12.0-16.0); IMMATURE GRANULOCYTES 0.1 % (0.0-5.0); LYMPH% 26.6 % (15-41); MEAN CELL VOLUME 97.8 fL CALC (80.0-100.0); MEAN CORPUSCULAR HGB 30.4 pG CALC (26.0-32.0); MEAN CORPUSCULAR HGB CONC 31.1 g/dL CAL (32.0-36.0); MONO% 7.1 % (2-13); NEUT# 4.94 thou/uL (2.00-7.15); NEUT% 62.5 % (42-76); RED BLOOD COUNT 3.58 mill/uL (4.20-5.60); RED CELL DISTRI WIDTH 13.6 % (11.5-15.5)
[2024-07-24 13:32] LABS: ALBUMIN 3.9 g/dL (3.2-5.0); BILIRUBIN, TOTAL 1.1 mg/dL (0.02-1.3); CREATININE 0.8 mg/dL (0.5-1.0); POTASSIUM 3.3 mmol/l (3.5-5.1); TOTAL PROTEIN 7.2 g/dL (6.3-8.2)
[2024-07-24 14:02] LABS: URINE BILIRUBIN - DIPSTICK Negative (NEGATIVE); URINE BLOOD DIPSTICK Negative (NEGATIVE); URINE GLUCOSE - DIPSTICK Negative (NEGATIVE); URINE KETONE Trace mg/dL (NEGATIVE); URINE NITRITE - DIPSTICK Negative (Negative); URINE PH 5.5 (4.5-8.0); URINE PROTEIN - DIPSTICK 30 mg/dL (NEG-TRACE); URINE UROBILINOGEN - DIPSTICK 0.2 E.U./dL (0.2)
[2024-07-24 14:06] LABS: URINE COLOR Yellow; URINE LEUK ESTERASE Small (NEGATIVE)
[2024-07-24 14:08] LABS: URINE BACTERIA FEW hpf; URINE EPITHELIAL CELLS MODERATE EPI/hpf (0-FEW)
[2024-07-25] MEDS ORDERED: BACTRIM DS1 TAB PO (09:28)
== END 2024-07-24 17:02 | disposition home or self-care (01) ==
LOC: ED 12:22
PROVIDERS: Family Medicine
DX: R63.4 Abnormal weight loss (principal); N39.0 Urinary tract infection, site not specified; B95.62 Methicillin resistant Staphylococcus aureus infection as the cause of diseases classified elsewhere; I10 Essential (primary) hypertension; E78.00 Pure hypercholesterolemia, unspecified; Z86.73 Personal history of transient ischemic attack (TIA), and cerebral infarction without residual deficits
CPT/HCPCS: Q9967